=== PATIENT | male | born 1995 | race African-American/Black ===

== ENCOUNTER 2019-08-07 08:17 | Inpatient (IN) | payer OTHER ==
[2019-08-07] VITALS (8 sets, daily range): BP systolic 92–123; BP diastolic 50–70
[~2019-08-07] VITALS: Ht 175.3 cm; Wt 94.3 kg
[2019-08-07] MEDS ORDERED: PARO40TA3 PO (08:52)
[2019-08-07] MEDS ORDERED: PRAZ2CAP PO (08:52)
[2019-08-07] MEDS ORDERED: PRAZ1CAP PO (08:52)
[2019-08-07 09:14] LABS: BASO # 0.1 10^3/uL (0.0-0.2); BASO % 0.6 % (0.0-1.0); EOS # 0.2 10^3/uL (0.0-0.5); HEMATOCRIT 48.5 % (42.0-52.0); HEMOGLOBIN 15.9 g/dl (13.5-17.5); LYMPH # 1.4 10^3/uL (1.5-5.0); LYMPH % 16.8 % (24.0-44.0); MEAN CORPUSCULAR HEMOGLOBIN 29.8 pg (27.0-33.0); MEAN CORPUSCULAR HGB CONC 32.8 g/dl (32.0-36.5); MONO % 11.4 % (0.0-5.0); NEUTROPHILS # 5.7 10^3/uL (1.5-8.5); PLATELET COUNT, AUTOMATED 284 10^3/uL (150-450); RED BLOOD COUNT 5.33 10^6/uL (4.30-6.10); WHITE BLOOD COUNT 8.3 10^3/uL (4.0-10.0)
[2019-08-07 09:34] LABS: BLOOD UREA NITROGEN 17 MG/DL (7-18); CALCIUM LEVEL 9.1 MG/DL (8.5-10.1); CARBON DIOXIDE LEVEL 27 MEQ/L (21-32); CHLORIDE LEVEL 107 MEQ/L (98-107); CK-MB VALUE MASS 5.1 NG/ML (<3.6); CPK CREATINE PHOSPHOKINASE 1823 U/L (39-308); CREATININE FOR GFR 1.64 MG/DL (0.70-1.30); FREE THYROXINE INDEX 2.2 % (1.4-3.8); GLOMERULAR FILTRATION RATE > 60.0 (>60); GLUCOSE, FASTING 95 MG/DL (70-100); MAGNESIUM LEVEL 2.1 MG/DL (1.8-2.4); MB/CK RELATIVE INDEX 0.28 (< OR =4); NT-PRO BNP 277 PG/ML (<125); SODIUM LEVEL 140 MEQ/L (136-145); T UPTAKE 33 % (33-40); THYROXINE (T4) 6.7 UG/DL (4.5-12.0); TROPONIN I 0.18 NG/ML (< 0.10)
--- NOTE | 2019-08-07 09:41 | REP ---
Portable chest x-ray: Single view. History: Chest pain. Findings: EKG electrodes are seen. The lungs are well inflated and clear. Pleural angles are sharp. Heart size is normal. Pulmonary vasculature is not increased. No significant bony abnormality. Impression: No active disease. Electronically Signed by Kvng Damon MD 08/07/2019 09:34 A
[2019-08-07 10:24] LABS: APPEARANCE, URINE CLEAR (CLEAR); BACTERIA, URINE AUTO NEGATIVE (NEGATIVE); BILIRUBIN, URINE AUTO NEGATIVE (NEGATIVE); BLOOD, URINE BLOOD NEGATIVE (NEGATIVE); COLOR, URINE YELLOW (YELLOW); GLUCOSE, URINE (UA) AUTO NEGATIVE (NEGATIVE); KETONE, URINE AUTO NEGATIVE (NEGATIVE); LEUKOCYTE ESTERASE, URINE AUTO NEGATIVE (NEGATIVE); NITRITE, URINE AUTO NEGATIVE (NEGATIVE); PROTEIN, URINE AUTO NEGATIVE (NEGATIVE); RBC, URINE AUTO 0 /HPF (0-3); SPECIFIC GRAVITY URINE AUTO 1.021 (1.002-1.035); SQUAMOUS EPITHELIAL CELL UR AU 0 /HPF (0-6); UROBILINOGEN, URINE AUTO 0.2 mg/dL (0.0-2.0); WBC, URINE AUTO 0 /HPF (0-3)
[2019-08-07] MEDS ORDERED: NS 1,000 ML IV ONE (10:30)
[2019-08-07 10:51] LABS: AMPHETAMINES LEVEL URINE NEGATIVE (NEGATIVE); BARBITURATES URINE NEGATIVE (NEGATIVE); BENZODIAZEPINES URINE NEGATIVE (NEGATIVE); CANNABINOIDS URINE NEGATIVE (NEGATIVE); COCAINE METABOLITE URINE NEGATIVE (NEGATIVE); METHADONE URINE NEGATIVE (NEGATIVE); OPIATES URINE NEGATIVE (NEGATIVE); PHENCYCLIDINE URINE NEGATIVE (NEGATIVE)
--- NOTE | 2019-08-07 12:38 | HPEPDOC ---
General Date of Admission 08/07/2019 Date of Service: Aug 07, 2019 Attending Physician: GOLDEN LÓPEZ MD Chief Complaint The patient is a 24-year-old male admitted with a reason for visit of Sob Dizziness. 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 He denies any fanny chest pain, family history of sudden , knowledge of family with dysrhythmias, headaches, recent travel, recent illness, fever, chills, history of shortness of breath or edema. He thinks that his prior syncopal episodes may have had something to do with his nightly prazosin but noted that he has also had syncope without exertion during the day. In the ED, vitals were 129/58, HR 86, temp98.2, RR 17, saturating 99%. He was asymptomatic. Initial work up was notable for an EKG showing 1st degree heart block without ST changes, elevated trop to 0.18 (currently being trended), proBNP 277, TSH 2.55, free T4 2.2, negative tox screen, chest xray without acute pathology, CK 1823, Mag 2.1. He haad a bland UA, and he was given 1L NS. He is now being admitted to medicine for investigation of his syncope with preceding palpitations, tropininemia and RABIA. Home Medications Scheduled Paroxetine HCl (Paroxetine) 40 Mg Tablet, 40 MG PO DAILY, (Reported) Prazosin Hcl (Prazosin HCl) 2 Mg Capsule, 2 MG PO QHS, (Reported) Allergies Coded Allergies: No Known Allergies (Unverified , 08/07/19) Past Medical History Medical History Prior episodes of syncope PTSD Depression Surgical History None Family History Significant Family History: No pertinent family hx Sister has a heart murmurbut no knowledge of any other cardiac issues within his family. Social History * Smoker: former Smoker Alcohol: occationally Drugs: denies Recent Travel/Sick Contacts: Denies: Recent travel, Recent sick contacts lives with his . Retired . A-FIB/CHADSVASC A-FIB History Current/History of A-Fib/PAF?: No Current PO Anticoag Therapy: No Age/Risk Factor Scoring CHADSVASC: CHADSVASC Response (Comments) Value Age Risk Factor Age < 65 years old 0 Gender Risk Factor Male 0 Hx of CHF No 0 Hx of HTN No 0 Hx of Stroke/TIA/or VTE No 0 Hx of Diabetes No 0 Hx of Vascular Disease No 0 Total 0 Treatment Treatment ordered: NONE Reason Anticoagulant not given: Not indicated/[id number] Review of Systems Constitutional: Denies: Chills, Fever, Night Sweats Eyes: Denies: Pain, Vision change ENT: Denies: Head Aches, Ear Pain, Dysphagia Skin: Denies: Rash, Lesions, Breakdown Pulmonary: Denies: Dyspnea, Cough Cardiovascular: Reports: Palpitations, Lt Headedness; Denies: Chest Pain, Orthopnea, Paroxysmal Noc. Dyspnea, Edema Gastrointestinal: Denies: Nausea, Vomiting, Abdominal Pain, Diarrhea Genitourinary: Denies: Dysuria, Frequency, Incontinence, Retention Hematologic: Denies: Bruising, Bleeding Excessively Endocrine: Denies: Polydipsia, Polyphagia, Polyuria, Heat Intolerance, Cold Intolerance, Other Endocrine Sx Musculoskeletal: Denies: Neck Pain, Back Pain, Shoulder Pain, Arm Pain, Hand Pain, Leg Pain, Foot Pain, Joint Pain, Muscle Pain, Spasms, Other Symptoms Neurological: Denies: Weakness, Numbness, Incoordination, Change in speech, Confusion, Seizures, Other Symptoms Psych: Denies: Mood Normal, Anxiety, Depression, Memory Issues, Thoughts of Self Harm, Anger, Thoughts of Harming Other, Other Psych Physical Examination General Exam: Positive: Alert, No Acute Distress Eye Exam: Positive: PERRLA, Conjunctiva & lids normal, EOMI; Negative: Sclera icteric ENT Exam: Positive: Atraumatic, Mucous membr. moist/pink, Pharynx Normal Neck Exam: Positive: Supple; Negative: JVD, thyromegaly Chest Exam: Positive: Clear to auscultation, Normal air movement Heart Exam: Positive: Rate Normal, Regular Rhythm, Normal S1, Normal S2; Negative: Murmurs, Rubs Telemetry: Positive: No significant arrhythmia Abdomen Exam: Positive: Normal bowel sounds, Soft; Negative: Tenderness, Hepatospenomegaly Extremity Exam: Positive: Normal pulses; Negative: Clubbing, Cyanosis, Edema Skin Exam: Positive: Nl turgor and temperature; Negative: Breakdown, Lesion Neuro Exam: Positive: Normal Gait, Normal Speech, Cranial Nerves 3-12 NL, Reflexes 2+ Psych Exam: Positive: Mental status NL, Mood NL, Oriented x 3 Vital Signs Vital Signs Date Time Temp Pulse Resp B/P (MAP) Pulse Ox O2 Delivery O2 Flow Rate FiO2 08/07/19 11:30 64 16 119/59 (79) 100 Room Air 08/07/19 08:18 98.2 Laboratory Data Labs 24H Laboratory Tests 2 08/07/19 08:43: Immature Granulocyte % (Auto) 0.2, Neutrophils (%) (Auto) 69.0H, Lymphocytes (%) (Auto) 16.8L, Monocytes (%) (Auto) 11.4H, Eosinophils (%) (Auto) 2.0, Basophils (%) (Auto) 0.6, Neutrophils # (Auto) 5.7, Lymphocytes # (Auto) 1.4L, Monocytes # (Auto) 1.0H, Eosinophils # (Auto) 0.2, Basophils # (Auto) 0.1, Nucleated Red Blood Cells % (auto) 0.0, Anion Gap 6L, Glomerular Filtration Rate > 60.0, Calcium Level 9.1, Magnesium Level 2.1, Total Creatine Kinase 1823H, Creatine Kinase MB 5.1H, Creatine Kinase MB Relative Index 0.28, Troponin I 0.18H, NT -Pro-B-Type Natriuretic Peptide 277H, Thyroid Stimulating Hormone (TSH) 2.550, Free Thyroxine Index 2.2, Thyroxine (T4) 6.7, Triiodothyronine (T3) Uptake 33 08/07/19 10:02: Urine Color YELLOW, Urine Appearance CLEAR, Urine pH 7.0, Urine Specific [place] 1.021, Urine Protein NEGATIVE, Urine Glucose (Auto)(UA) NEGATIVE, Urine Ketones (Auto) NEGATIVE, Urine Blood NEGATIVE, Urine Nitrite NEGATIVE, Urine Bilirubin NEGATIVE, Urine Urobilinogen 0.2, Urine Leukocyte Esterase (Auto) NEGATIVE, Urine WBC (Auto) 0, Urine RBC (Auto) 0, Urine Hyaline Casts (Auto) 0, Urine Bacteria (Auto) NEGATIVE, Urine Squamous Epithelial Cells 0, Urine Sperm (Auto) , Urine Opiates Screen NEGATIVE, Urine Methadone Screen NEGATIVE, Urine Barbiturates Screen NEGATIVE, Urine Phencyclidine Screen NEGATIVE, Urine Amphetamines Screen NEGATIVE, Urine Benzodiazepines Screen NEGATIVE, Urine Cocaine Metabolite Screen NEGATIVE, Urine Cannabinoids Screen NEGATIVE CBC/BMP Laboratory Tests 08/07/19 08:43 Assessment/Plan 24 yo man with a history of 5 prior syncopal episodes, otherwise healthy who presents with palpitations, lightheadedness c/f cardiac syncope with noted elevate cardiac markers, CK and RABIA without knowledge of baseline renal function. Plan: Syncope: Most likely cardiac in etiology given palpitations with associated lightheadedness and noted tropopinemia and prolonged KS on EKG. -Telemetry -Electrolytes are within normal limits, will monitor daily K and Mag -TSH and free T4 within normal limits -elevated proBNP to 277 without evidence of fanny volume overload, will monitor -TTE -cardiology consult with Dr. [place] -CXR without acute pathology RABIA: possibly a combination of exercise induced rhabdo and dehydration, given elevated CK -s/p 1L NS -will give 1 more liter -AM BMP -urine lytes -if no improvement tomorrow AM will get renal US DVT ppx: heparin 5000u Q8H Dispo: medsurg with tele Diet: regular Plan / VTE VTE Prophylaxis Ordered?: Yes GOLDEN LÓPEZ MD Aug 07, 2019 12:38
[2019-08-07] MEDS: HEPARIN SOD (PORCINE) 5000 UNITS/ML VIAL SC SCH ×2 (14:30→21:56)
[2019-08-07] MEDS: PARoxetine 20 MG TAB PO SCH (14:30)
[2019-08-07] MEDS: NS 1,000 ML IV SCH (17:46)
--- NOTE | 2019-08-07 19:34 | ECHO ---
DATE OF PROCEDURE: 08/07/2019 REFERRING PHYSICIAN: Dr. Jarquin INDICATION: Syncope. Height 175 cm, weight 90 kg. DIMENSIONS: IVS: 1.2 LV: 4.9 LVPW: 1.2 LA: 2.8 Aorta: 2.6 Tissue Doppler velocities of mitral annulus were 15.8 septally and 15.0 laterally. The study is of good technical quality. The patient is in sinus rhythm with complete heart block and AV dissociation. Left ventricle is normal size and systolic function, estimated left ventricular ejection fraction (LVEF) 55-60%. Mild left ventricular hypertrophy (LVH) is noted. Right ventricle is also normal size and systolic function. Both atria are normal. All four cardiac valves were well seen and appear normal. No pericardial effusion is noted. Inferior vena cava is normal size. Aortic root, aortic arch and abdominal aorta all appear normal. Doppler interrogation reveals no aortic stenosis or insufficiency. There is trace mitral, tricuspid, and pulmonic insufficiency. Evaluation of diastolic function is altered due to underlying AV dissociation. But tissue Doppler velocities of mitral annulus are high and consequently I estimate normal diastolic function. CONCLUSIONS: 1. Study is of good technical quality. 2. Normal left ventricular (LV) size, mild left ventricular hypertrophy (LVH) and preserved LV systolic function. Probably normal diastolic function. 3. No hemodynamically significant valvular disease. 4. Normal central venous pressure and probably normal pulmonary artery pressure. COMMENT: Subacute bacterial endocarditis (SBE) prophylaxis is not recommended. MTDD
--- NOTE | 2019-08-07 20:15 | ECGEPIP ---
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 Order Number: [id number] Reading MD: Funmilayo Tran Measurements Intervals [place] Rate: 71 P: [place]: 0 QRS: 76 QRSD: 92 T: 57 QT: 375 QTc: 408 Interpretive Statements SINUS RHYTHM WITH FIRST DEGREE AV BLOCK ST ELEVATION, PROBABLY EARLY REPOLARIZATION Electronically Signed on 08-07-2019 20:15:00 EST by Funmilayo Tran
--- NOTE | 2019-08-07 22:22 | CR ---
DATE OF CONSULTATION: 08/07/2019 CARDIOLOGY CONSULTATION REFERRING PROVIDER: Dr. Kaya Jarquin REASON FOR THE CONSULT: Abnormal EKG, near syncope. HISTORY OF PRESENT ILLNESS: A 24-year-old -[place] male who just retired from the /[employer] about 2 years ago because of post-traumatic stress disorder (PTSD). Has been doing fairly well with episodes of near syncope on and off but rare, which he thought was related to the prazosin dropping his blood pressure. He also complains of palpitations described as a fast and a slow heartbeat. He is very active without any history of hypertension, hyperlipidemia, diabetes mellitus or known kidney disease, thyroid disorders. He does exercise very frequently at [employer] [place] [employer] and even yesterday he was exercising. During the night, he became lightheaded and usually he at night, but has been able to go to bed and feeling fine. But in the middle of the night, he woke up around a.m., tried to go to the bathroom and he felt dizzy and lightheaded and collapsed on the floor. He thinks he was out for about 30 seconds. Because he was not feeling better, he came to the emergency room (ER) early this morning around 8 o'clock for further evaluation. Upon arrival at the ER, his vital signs were stable with a blood pressure of 129/58, pulse 83, respirations 17, and his maximum temperature was 98.2 degrees Fahrenheit with an oxygen saturation of 99% on room air. I was informed about his symptoms by the ER provider, and I recommended to admit him for observation. He was admitted to medical-surgical on telemetry, and in the afternoon, he was found to have EKG changes on the telemetry consistent with complete heart block. His EKG on admission revealed normal sinus rhythm with a markedly prolonged TN interval/first-degree atrioventricular (AV) block. He was transferred to the progressive care unit (PCU) and cardiology consult was called. When I saw Mr. Alan Matamoros on the floor, he was supine in bed in no acute distress at rest and very pleasant. He denies any chest pain. He thinks on and off this evening he has been feeling intermittent fast and slow heartbeat. This is usually associated with lightheadedness. He has no pedal edema, orthopnea. He denies any chest pain. He has not been coughing. He denies any fever or chills. He has no focal manifestation. There is no active swelling or redness of the joints. There is no recent skin rash or tick bite. His labs on admission revealed an elevated serum creatinine of 1.64 with a total CPK of 1823 and a serum troponin of 0.18. Serum pro-BNP was 277. Urine toxicology was negative. He has a past medical history, as mentioned above, positive for PTSD, and prior episodes of near syncope, palpitations. There is no history of significant valvular heart disease, cardiomyopathy, sudden cardiac . And as mentioned above, there is no history of hypertension, diabetes mellitus, hyperlipidemia, kidney disease, thyroid disorders, lung disease. PAST SURGICAL HISTORY: Positive for wisdom tooth removal, otherwise unremarkable. FAMILY HISTORY: Positive for irregular heartbeats, and his sister was told that she has a heart murmur. SOCIAL HISTORY: The patient lives in town with his . He denies any smoking or ethyl alcohol (EtOH) abuse. He drinks very rarely. ALLERGIES: No known drug allergies. ADVANCED DIRECTIVES: Patient is FULL CODE. PHYSICAL EXAMINATION: The patient is alert and oriented, in no acute distress at rest, and his most recent vital signs revealed a blood pressure of 112/63 with a pulse of 76, respirations 17, and his maximum temperature is 98.4 degrees Fahrenheit with an oxygen saturation of 99-100% on room air. Examination of the head: Atraumatic. Neck: Did not reveal any carotid bruits. Lungs: The lungs were clear bilaterally on auscultation without any wheezing or crackles. Heart: The heart examination revealed irregular heart sounds, and I could not hear any gallops or murmur. The point of maximum impulse (PMI) is not displaced. There is no rub. Abdomen: Soft and bowel sounds are active. No bruits. Extremities: Reveal no pedal edema. Peripheral pulses, dorsalis pedis was +2 and equal as well as the radial pulses. Neurological Examination: Grossly was negative for focal deficits, patient was able to move all his extremities in bed. LABORATORY: CBC done today revealed a WBC of 8.3, hemoglobin 15.9, hematocrit 48.5, and platelets 284,000. BMP revealed a sodium of 140, potassium 4.0, chloride 107, CO2 27, BUN 17, creatinine 1.64, GFR more than 60, fasting glucose 95, and calcium 9.1. Serum magnesium is 2.1. Thyroid function test revealed a TSH of 2.55 and a free T4 of 2.2. Serum pro-BNP is 277. Serum troponin is 0.18 with a total CPK of 1823. CK-MB is 5.1 and relative index 0.28. Urinalysis essentially normal. Urine toxicology is negative. Chest x-ray revealed no acute disease process. Electrocardiogram done on admission in the emergency room (ER) revealed normal sinus rhythm at 71 beats per minute with a TN interval of about 400 milliseconds and early repolarization. No prior at this time for comparison. Telemetry was reviewed and revealed intermittent complete heart block but with an escape ventricular rate of 60-70 beats per minute. Junctional beats/rhythm also noted as well as first-degree AV block. IMPRESSION: 1. A 24-year-old male with a long history of near syncope, passed out late last evening, and at the time he was feeling dizzy and lightheaded, feeling his heart rate was going fast and slow. He came to the ER early this morning and was found to have an abnormal EKG that revealed a normal sinus rhythm with a markedly prolonged TN interval. His labs revealed some degree of kidney injury that may be related to dehydration and the supplement he is taking prior to his exercises. His serum troponin as well as serum CPK is slightly elevated and most likely related to muscle injury. His serum pro-BNP also is slightly elevated, but that may be related to the complete heart block with some degree of diastolic heart failure. Lyme titers are pending. Patient is very active, and he drives around and has been symptomatic. He initially thought it could be related to the prazosin and that may have a contributing factor of some of his episodes of lightheadedness and near syncope, but today, he has intermittent heart block and he is not on any medication that can be causing that. I am not sure about his supplement, and it was recommended to him to bring it to the hospital, so we can look at the different components in that supplement. I have told him that he most likely will need a permanent pacemaker because he is very active, he drives, and he has been feeling dizzy and lightheaded, and the EKG abnormalities can be the etiology. He would be willing to proceed. In the meantime, will be reviewing the echocardiogram for further evaluation. I will continue the IV fluids and monitor his cardiac enzymes. Dr. Franks will be seeing him in the morning, and Dr. Juarez is aware of the case and he will be willing to implant his permanent pacemaker any time over the weekend. He will be informed. It was a pleasure to participate in the care of Mr. Alan Matamoros for his underlying cardiac condition. We will continue to monitor him along with you while in the hospital and as an outpatient upon discharge as needed. The case was discussed briefly with the hospitalist covering tonight.
--- NOTE | 2019-08-07 22:26 | ECGEPIP ---
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 Poor R wave progression. Rhythm change compared with 08/07/2019 at 8:37 AM Electronically Signed on 08-07-2019 22:26:08 EST by Oleksandr Peguero
[2019-08-07] MEDS: PRAZOSIN 1 MG CAP PO SCH (22:45)
[2019-08-08] VITALS (7 sets, daily range): BP systolic 98–154; BP diastolic 50–76
[2019-08-08] MEDS: NS 1,000 ML IV SCH (01:30)
[2019-08-08] MEDS: HEPARIN SOD (PORCINE) 5000 UNITS/ML VIAL SC SCH ×3 (05:48→21:09)
[2019-08-08 06:12] LABS: HEMATOCRIT 45.7 % (42.0-52.0); HEMOGLOBIN 15.2 g/dl (13.5-17.5); MEAN CORPUSCULAR HEMOGLOBIN 30.2 pg (27.0-33.0); MEAN CORPUSCULAR HGB CONC 33.3 g/dl (32.0-36.5); MEAN CORPUSCULAR VOLUME 90.7 fl (80.0-96.0); PLATELET COUNT, AUTOMATED 285 10^3/uL (150-450); RED BLOOD COUNT 5.04 10^6/uL (4.30-6.10); WHITE BLOOD COUNT 8.9 10^3/uL (4.0-10.0)
[2019-08-08 06:33] LABS: BLOOD UREA NITROGEN 13 MG/DL (7-18); CALCIUM LEVEL 8.4 MG/DL (8.5-10.1); CARBON DIOXIDE LEVEL 26 MEQ/L (21-32); CHLORIDE LEVEL 106 MEQ/L (98-107); CREATININE FOR GFR 1.48 MG/DL (0.70-1.30); GLOMERULAR FILTRATION RATE > 60.0 (>60); GLUCOSE, FASTING 94 MG/DL (70-100); POTASSIUM SERUM 4.3 MEQ/L (3.5-5.1); SODIUM LEVEL 140 MEQ/L (136-145)
[2019-08-08] MEDS: PARoxetine 20 MG TAB PO SCH (09:19)
--- NOTE | 2019-08-08 14:31 | IPN ---
DATE: 08/08/2019 Mr. Matamoros has been feeling well. Since he has been in the hospital, he has not had any significant events. Telemetry monitoring continues to reveal variable degree of atrioventricular (AV) block. Most of the time he is in first-degree AV block with very long AV interval, but intermittently has complete AV dissociation, but the ventricular rate never drops overly slow. I have not seen any bradycardia below 40. Vital signs: Blood pressure of 90/70, but usually in low 100s systolic. Heart rate from 50s to 80s. He is afebrile. Saturation 98% on room air. Weight is 92.8 kg. He is alert and oriented and appropriate, very pleasant. Jugular venous pulse (JVP) is not up. Heart is regular. I do not appreciate any gallop, rub or murmur. Lungs are clear. No peripheral edema. Neurologically intact. LABORATORIES: CBC and basic metabolic panel are normal but for creatinine 1.5. There was no followup troponin drawn. Urinalysis is negative for protein or blood, and his toxicology screen was completely negative. ASSESSMENT AND PLAN: Mr. Matamoros is a very pleasant 24-year-old man, who presents with syncopal events at home. It occurred at night after a fairly intense workout in the afternoon hours. Based on the description there seems to be suggestion of vasovagal etiology even though his EKG continues to reveal variable degree of AV block with narrow QRS complex. At this point, in my opinion, he most likely will end up getting a pacemaker. But we do not have any obvious explanation for the AV block other than very high vagal tone. I had a discussion with Dr. Juarez and he is somewhat reluctant to proceed with pacemaker placement because so far we have not demonstrated any severe bradycardia. It is certainly a very reasonable point. Will let the patient ambulate in progressive care unit (PCU) today and will let him eat. Provided he does have higher degree of AV bone block and/or symptomatic bradycardia, then obviously pacemaker is clearly warranted. On the other hand if no evidence occur, he probably can get a Reveal monitor rather than a pacemaker itself. As far as the etiology is concerned this is somewhat mysterious. His chest x- ray is normal and there are no other signs or symptoms to suggest sarcoidosis. There are also no signs or symptoms to suggest a rheumatologic condition, but I am going to send an JOSIE titer and sedimentation rate and will repeat his troponin tomorrow morning. The other conditions are Lyme disease and that the titer was sent even though it will not be available for several days, and finally, consideration should be also given to rare infections. Nevertheless, in his history I do not see any signs to suggest so. EDLAD
--- NOTE | 2019-08-08 14:39 | IPNPDOC ---
Text Note Date of Service The patient was seen on 08/08/19. NOTE General Exam: Alert, No Acute Distress Eye Exam: PERRLA, Conjunctiva & lids normal, EOMI, anicteric ENT Exam: Atraumatic, Mucous membr. moist/pink, Pharynx Normal Neck Exam: Supple, no JVD or thyromegaly Chest Exam: Clear to auscultation, Normal air movement Heart Exam: Rate Normal, Normal S1, Normal S2, no murmurs Telemetry: prolonged DE and then episodes of 3rd degree heart block Abdomen Exam: Normoactive bowel sounds, soft, NTND Extremity Exam: No LE edema, WWP, 2+ DP pulses Skin Exam: No lesions or rashes Neuro Exam: Normal Gait, Normal Speech, Cranial Nerves 3-12 NL, Reflexes 2+ Psych Exam: Mental status NL, Mood NL, Oriented x 3 Labs: Reviewed: WBC 8.9 Hgb 15.2 Hct 45.7 Platelets 285 Na 140 K 4.3 Cr downtrended to 1.48 Mag 2 08/07/2019: TTE The study is of good technical quality. The patient is in sinus rhythm with complete heart block and AV dissociation. Left ventricle is normal size and systolic function, estimated left ventricular ejection fraction (LVEF) 55-60%. Mild left ventricular hypertrophy (LVH) is noted. Right ventricle is also normal size and systolic function. Both atria are normal. All four cardiac valves were well seen and appear normal. No pericardial effusion is noted. Inferior vena cava is normal size. Aortic root, aortic arch and abdominal aorta all appear normal. Doppler interrogation reveals no aortic stenosis or insufficiency. There is trace mitral, tricuspid, and pulmonic insufficiency. Evaluation of diastolic function is altered due to underlying AV dissociation. But tissue Doppler velocities of mitral annulus are high and consequently I estimate normal diastolic function. CONCLUSIONS: 1. Study is of good technical quality. 2. Normal left ventricular (LV) size, mild left ventricular hypertrophy (LVH) and preserved LV systolic function. Probably normal diastolic function. 3. No hemodynamically significant valvular disease. 4. Normal central venous pressure and probably normal pulmonary artery pressure. Assessment/Plan 24 yo man with a history of 5 prior syncopal episodes stretching over >1y, otherwise healthy who presents with palpitations, lightheadedness c/f cardiac syncope with noted elevate cardiac markers, CK and RABIA without knowledge of baseline renal function, with report of health supplements that are still to be reviewed, now found to be in 3rd degree heart block with a normal echo with no noted structural pathology, pending a pacemaker with Dr. Juarez today. Plan: Syncope: Presented with a history of multiple episodic syncope episodes wtih some palpitations and associated lightheadedness and noted tropopinemia and prolonged DE on EKG, and now 3rd degree HB on telemetry. -continue telemetry -Electrolytes are within normal limits, will monitor daily K and Mag -TSH and free T4 within normal limits -elevated proBNP to 277 without evidence of fanny volume overload, will monitor -TTE wnl -cardiology consult with Dr. Washington --> has pads on and transferred to PCU in the event that he needs transthoracic pacing emergently -f/u lyme titers -Pending pacemaker with Dr. Juarez today, patient is NPO -CXR without acute pathology RABIA: possibly a combination of exercise induced rhabdo, dehydration and supplements -s/p 1L NS, got 2nd liter overnight -AM BMP with improved Cr -f/u supplements history, his is to bring in his supplements he has been taking for review DVT ppx: heparin 5000u Q8H Dispo: PCU with cardiology following, pending lyme titers and likely pacemaker placement this weekend Diet: regular Plan / VTE VTE Prophylaxis Ordered?: Yes VS,Gloria, I+O VS, Gloria, I+O Laboratory Tests 08/07/19 08:43 08/08/19 05:43 Vital Signs Date Time Temp Pulse Resp B/P (MAP) Pulse Ox O2 Delivery O2 Flow Rate FiO2 08/08/19 04:00 98.4 65 16 108/76 (87) 99 Room Air I&O- Last 24 Hours up to 6 AM 08/08/19 06:00 Intake Total 2235 ml Output Total 700 ml Balance 1535 ml GOLDEN LÓPEZ MD Aug 08, 2019 07:27
[2019-08-08] MEDS: PRAZOSIN 1 MG CAP PO SCH (21:00)
[2019-08-09] VITALS (7 sets, daily range): BP systolic 108–137; BP diastolic 58–82
[2019-08-09 05:54] LABS: HEMATOCRIT 47.7 % (42.0-52.0); HEMOGLOBIN 15.1 g/dl (13.5-17.5); MEAN CORPUSCULAR HEMOGLOBIN 29.3 pg (27.0-33.0); MEAN CORPUSCULAR HGB CONC 31.7 g/dl (32.0-36.5); MEAN CORPUSCULAR VOLUME 92.6 fl (80.0-96.0); PLATELET COUNT, AUTOMATED 306 10^3/uL (150-450); RED BLOOD COUNT 5.15 10^6/uL (4.30-6.10); WHITE BLOOD COUNT 8.7 10^3/uL (4.0-10.0)
[2019-08-09 06:20] LABS: ERYTHROCYTE SEDIMENTATION RATE 12 mm/hr (0-15)
[2019-08-09 06:32] LABS: BLOOD UREA NITROGEN 17 MG/DL (7-18); CALCIUM LEVEL 8.7 MG/DL (8.5-10.1); CARBON DIOXIDE LEVEL 30 MEQ/L (21-32); CHLORIDE LEVEL 106 MEQ/L (98-107); GLOMERULAR FILTRATION RATE > 60.0 (>60); GLUCOSE, FASTING 88 MG/DL (70-100); POTASSIUM SERUM 4.5 MEQ/L (3.5-5.1); SODIUM LEVEL 140 MEQ/L (136-145)
[2019-08-09] MEDS: HEPARIN SOD (PORCINE) 5000 UNITS/ML VIAL SC SCH ×3 (06:50→22:11)
[2019-08-09] MEDS: PARoxetine 20 MG TAB PO SCH (08:37)
--- NOTE | 2019-08-09 11:19 | IPNPDOC ---
Text Note Date of Service The patient was seen on 08/09/19. NOTE Subjective: -Had episode of SOB yesterday walking around -Overnight was yazmin was sleeping to 40s -continues on tele to go from 1st degree HB to dissociation -This morning reporting worsening dyspnea with any exertion Interim events: -Dr. Juarez decided to wait on PPM placement and monitor for symptomatic bradycardia-Dr. Interiano NOTE General Exam: Alert, No Acute Distress Eye Exam: PERRLA, Conjunctiva & lids normal, EOMI, anicteric ENT Exam: Atraumatic, Mucous membr. moist/pink, Pharynx Normal Neck Exam: Supple, no JVD or thyromegaly Chest Exam: Clear to auscultation, Normal air movement Heart Exam: Rate Normal, Normal S1, Normal S2, no murmurs Telemetry: prolonged NJ and then episodes of 3rd degree heart block Abdomen Exam: Normoactive bowel sounds, soft, NTND Extremity Exam: No LE edema, WWP, 2+ DP pulses Skin Exam: No lesions or rashes Neuro Exam: Normal Gait, Normal Speech, Cranial Nerves 3-12 NL, Reflexes 2+ Psych Exam: Mental status NL, Mood NL, Oriented x 3 Labs: Reviewed: WBC 8.7 Hgb 15.1 Hct 47.7 Platelets 306 Na 140 K 4.5 Cr uptrending to 1.7 Mag pending ESR 12 Trop this AM was uptrending, now 0.6 08/07/2019: TTE The study is of good technical quality. The patient is in sinus rhythm with complete heart block and AV dissociation. Left ventricle is normal size and systolic function, estimated left ventricular ejection fraction (LVEF) 55-60%. Mild left ventricular hypertrophy (LVH) is noted. Right ventricle is also normal size and systolic function. Both atria are normal. All four cardiac valves were well seen and appear normal. No pericardial effusion is noted. Inferior vena cava is normal size. Aortic root, aortic arch and abdominal aorta all appear normal. Doppler interrogation reveals no aortic stenosis or insufficiency. There is trace mitral, tricuspid, and pulmonic insufficiency. Evaluation of diastolic function is altered due to underlying AV dissociation. But tissue Doppler velocities of mitral annulus are high and consequently I estimate normal diastolic function. CONCLUSIONS: 1. Study is of good technical quality. 2. Normal left ventricular (LV) size, mild left ventricular hypertrophy (LVH) and preserved LV systolic function. Probably normal diastolic function. 3. No hemodynamically significant valvular disease. 4. Normal central venous pressure and probably normal pulmonary artery pressure. Assessment/Plan 24 yo man with a history of 5 prior syncopal episodes stretching over >1y, otherwise healthy who presents with palpitations, lightheadedness c/f cardiac syncope with noted elevate cardiac markers, CK and RABIA without knowledge of baseline renal function, with report of health supplements that are still to be reviewed, now found to be in 3rd degree heart block with a normal echo with no noted structural pathology and normal ESR with pending lyme studies under evaluation for possible pacemaker. Plan: Syncope: Presented with a history of multiple episodic syncope episodes wtih some palpitations and associated lightheadedness and noted troponinemia and prolonged NJ on EKG, and now 3rd degree HB on telemetry. -continue telemetry -Electrolytes are within normal limits, will monitor daily K and Mag -TSH and free T4 within normal limits -elevated proBNP to 277 without evidence of fanny volume overload, will monitor volume status -TTE wnl -cardiology consult --> has pads within PCU in the event that he needs transthoracic pacing emergently. Has elevated troponin, euvolemic on exam with some KLINE with unclear source of myocardial injury, pending JOSIE, ESR was normal -f/u lyme titers -Ongoing evaluation for need of pacemaker with Dr. Juarez recommending waiting and observing symptomatic bradycardia before proceeding with PPM placement and exploring other etiologies -CXR without acute pathology -ESR was normal -This AM trop uptrended, Cardiology is consulted and Dr. Interiano is following RABIA: possibly a combination of exercise induced rhabdo, dehydration and supplements. Cr was initially improving after some fluids but is now uptrending -s/p 2L NS -send urine lytes -stopped all supplements that including Creatine, vitamins, whey protein and free amino acids. DVT ppx: heparin 5000u Q8H Dispo: PCU with cardiology following, pending lyme titers, JOSIE, close monitoring with discussions about the idea of PPM Diet: regular VS,Fishbone, I+O VS, Fishbone, I+O Laboratory Tests 08/09/19 05:19 Vital Signs Date Time Temp Pulse Resp B/P (MAP) Pulse Ox O2 Delivery O2 Flow Rate FiO2 08/09/19 04:50 48 108/72 (84) 08/09/19 04:00 98.3 16 100 Room Air I&O- Last 24 Hours up to 6 AM 08/09/19 06:00 Intake Total 660 ml Output Total 1000 ml Balance -340 ml GOLDEN LÓPEZ MD Aug 09, 2019 08:05
--- NOTE | 2019-08-09 11:20 | IPN ---
DATE OF VISIT: 08/09/2019 Mr. Matamoros is feeling about the same. He is asymptomatic at rest, but with standing up and with ambulation he often gets lightheaded. Telemetry monitoring also remains unchanged. He is most of the time in first-degree AV block, but intermittently has AV dissociation, but narrow QRS complex and no long pauses. With ambulation, it looks like his ventricular rate appropriately accelerated. Blood pressure 136/63. Heart rate from high 40s to 70s. Saturation 97% on room air. His fluid balance was approximately equal yesterday. Weight is recorded 95.8 kg. He is alert and oriented and appropriate. His jugular venous pulse (JVP) is not high. Lungs are clear. Heart exam reveals regular rhythm. No gallop. Extremities are free of edema. LABORATORIES: CBC is normal. Basic metabolic panel with sodium 140, potassium 4.5, BUN 17, creatinine 1.7, glucose 88 and Troponin I is 0.6. His JOSIE is pending and Lyme titer is also pending. His is present and apparently he went through his medical records, but there was no ECG that he could find. ASSESSMENT/PLAN: Mr. Matamoros is a very complicated and interesting case. He is a young man, very physically active who presented after he suffered several syncopal events at home that sound neurocardiogenic by description, but simultaneously is found to have first-degree AV block alternating with AV dissociation, but narrow QRS complex and no extreme bradycardia. Initially, I felt that he will need a pacemaker, but now I am less convinced. It is not clear to me what is causing the underlying abnormality and also not clear to me why his troponin is actually going up. At this point, mostly because of raising troponin, I think it is appropriate to continue observation. I will keep him in the hospital at least one more day. I asked him to keep ambulating. At this at this point, it is my feeling that we will most likely avoid pacemaker placement and will proceed with Reveal monitor possibly tomorrow.
[2019-08-09] MEDS: PRAZOSIN 1 MG CAP PO SCH (22:11)
[2019-08-10] VITALS (10 sets, daily range): BP systolic 116–128; BP diastolic 56–78
--- NOTE | 2019-08-10 01:18 | ECGEPIP ---
[facility] Test Date: 2019-08-09 Pat Name: MILLY GÓMEZ Department: Room: [place] [address] Gender: Male Returns Clerk: LINH : 1995 Requested By: Hodan Franks Order Number: [id number] Reading MD: Oleksandr Cerda Measurements Intervals [place] Rate: 61 P: TX: 0 QRS: 81 QRSD: 102 T: 46 QT: 393 QTc: 397 Interpretive Statements Sinus rhythm with very prolonged first degree av block Delayed anterior R wave progression Previous tracing done 08-07-19 showed av dissociation Electronically Signed on 08-10-2019 1:18:31 EST by Oleksandr Cerda
[2019-08-10 05:32] LABS: HEMOGLOBIN 14.4 g/dl (13.5-17.5); MEAN CORPUSCULAR HEMOGLOBIN 30.3 pg (27.0-33.0); MEAN CORPUSCULAR HGB CONC 33.5 g/dl (32.0-36.5); MEAN CORPUSCULAR VOLUME 90.3 fl (80.0-96.0); PLATELET COUNT, AUTOMATED 298 10^3/uL (150-450); RED BLOOD COUNT 4.76 10^6/uL (4.30-6.10)
[2019-08-10 05:53] LABS: BLOOD UREA NITROGEN 16 MG/DL (7-18); CALCIUM LEVEL 8.6 MG/DL (8.5-10.1); CARBON DIOXIDE LEVEL 29 MEQ/L (21-32); CHLORIDE LEVEL 106 MEQ/L (98-107); GLOMERULAR FILTRATION RATE > 60.0 (>60); GLUCOSE, FASTING 93 MG/DL (70-100); MAGNESIUM LEVEL 1.8 MG/DL (1.8-2.4); POTASSIUM SERUM 4.2 MEQ/L (3.5-5.1); SODIUM LEVEL 139 MEQ/L (136-145); TROPONIN I 0.26 NG/ML (< 0.10)
[2019-08-10] MEDS: HEPARIN SOD (PORCINE) 5000 UNITS/ML VIAL SC SCH ×3 (06:38→14:27)
[2019-08-10] MEDS ORDERED: ceFAZolin SOD 2 GM in IV 1 EA IV ONE (08:00)
[2019-08-10] MEDS: PARoxetine 20 MG TAB PO SCH (08:32)
[2019-08-10] MEDS ORDERED: LIDOCAINE 1% SDV INJ 30 ML VIAL As Ordered ONE (09:21)
[2019-08-10] MEDS ORDERED: MIDAZOLAM INJ 2 MG/2 ML VIAL (J2250) As Ordered ONE (09:22)
[2019-08-10] MEDS ORDERED: ONDANSETRON 4MG/2ML VIAL (J2405) As Ordered ONE (09:22)
[2019-08-10] MEDS ORDERED: fentaNYL 100 MCG/2 ML INJECTION (J3010) As Ordered ONE (09:22)
[2019-08-10] MEDS ORDERED: LIDOCAINE 2% INJ 100 MG/5 ML SDV (FOR ANES.) As Ordered ONE (09:26)
[2019-08-10] MEDS ORDERED: ceFAZolin 2 GM/D5W 50 ML IV BAG (J0690 PER 500MG) As Ordered ONE (09:45)
[2019-08-10] MEDS ORDERED: ACETAMINOPHEN 1000MG 100ML IV BTL (OFIRMEV) (J0131 PER 10MG) As Ordered ONE (09:52)
[2019-08-10] MEDS ORDERED: ONDANSETRON 4MG/2ML VIAL (J2405) IV PRN (10:45)
[2019-08-10] MEDS ORDERED: LR 1,000 ML IV SCH (10:45)
[2019-08-10] MEDS ORDERED: METOCLOPRAMIDE INJ 10MG/2ML VIAL (J2765) IV PRN (10:45)
[2019-08-10] MEDS ORDERED: fentaNYL 100 MCG/2 ML INJECTION (J3010) IV PRN (10:45)
--- NOTE | 2019-08-10 10:47 | RO ---
DATE OF PROCEDURE: 08/10/2019 PROCEDURE: Implantation of loop recorder. IMPLANTING COMMERCIAL CREDIT ANALYST: Dr. Alan Juarez ANESTHESIOLOGIST: Dr. Perez PREOPERATIVE DIAGNOSES: 1. Recurrent syncope. 2. AV block (unspecified). POSTOPERATIVE DIAGNOSES: 1. Recurrent syncope. 2. AV block (unspecified). TYPE OF ANESTHESIA: Monitored local anesthesia. BRIEF CLINICAL SUMMARY: This 24-year-old athletic -[place] male presented to our emergency room August 07, 2019 having suffered with shortness of breath, irregular palpitations and near syncope/syncope. Initial vital signs: Pulse 83 bpm, blood pressure 129/58, respiratory rate 17, O2 saturation 99% on room air. He was afebrile. His initial ER EKG showed sinus rhythm at 71 bpm with marked first-degree AV block with early repolarization, tracing non-appearance other than a first-degree AV block, not outside normal limits. Portable upright chest x-ray showed normal heart size and pulmonary vasculature with clear lung barajas. Echocardiogram on admission showed normal left ventricular size with borderline left ventricle hypertrophy with normal wall motion, normal left atrial size and Doppler assessment of LV diastolic function. Normal right heart chamber sizes and estimated pulmonary arterial pressure. Valvular structures and function were normal. Normal IVC size and collapse. No pericardial effusion. Admitted to a telemetry unit, intermittent second-degree AV block with Mobitz type 1 and occasional AV dissociation was observed, but pulse rates were never lower than 48 beats per minute and the patient did not complain of any dizziness or lightheadedness in hospital. Upon ambulation, his heart rate response was normal. EKG this morning shows sinus bradycardia with only subtle first-degree AV block. The patient is on prazosin and paroxetine at home for depression and post-traumatic stress disorder. Blood pressures in hospital were all within normal limits. In light of the uncertainty of the absolute diagnosis of his near syncope and syncope at home, and his young age, and monitor findings in the hospital of failing to demonstrate any significant bradyarrhythmia despite 72 hours of monitoring, after discussion with Dr. Franks we elected to proceed with an implantable loop recorder. DESCRIPTION OF PROCEDURE: In the fasting state, following informed consent and Ancef 2 grams IV premedication, the patient was taken to the operating theater. Numerous skin electrodes were applied to facilitate continuous electrocardiographic monitoring. The left precordial region was prepped and draped in the usual fashion. The skin over the third intercostal space 2 cm removed from the left sternal border was infiltrated with 1% Xylocaine and a 1 cm incision was made. Using the [employer]Stream[employer] introducing tool his implantable monitor was positioned on a 45 degrees angle from the incision site (iStreamPlanettronic LINQ model LNQ11, serial number [id number]). The remote signal indicated an excellent atrial and ventricular complex size. The skin was closed with two separate karen and a dry dressing was applied. The patient was returned to the recovery room in good condition. Within moments, the patient's awareness was restored. Heart rate 59 bpm, blood pressure 136/64, O2 saturation 95% on room air. Estimated blood loss less than 1 mL. No apparent complications. His device is set for VT cycle length 298 milliseconds (207 bpm) and 16 beats and bradycardia for cycle length 2000 milliseconds (30 bpm) four beats, asystole for 3 seconds. He will be going back to the floor and can be discharged later today from our standpoint. We will plan on seeing him for his wound check and staple removal in approximately 7-10 days time. We have asked him not to change his OpSite dressing and have only sponge baths until his karen are removed. Subsequent to his wound check, he will be monitored in the future by Dr. Zachary Washington, [place], [place].
--- NOTE | 2019-08-10 12:22 | IPNPDOC ---
Text Note Date of Service The patient was seen on 08/10/19. NOTE Subjective: -continued to have KLINE, otherwise no chest pain, palpitations NOTE General Exam: Alert, No Acute Distress Eye Exam: PERRLA, Conjunctiva & lids normal, EOMI, anicteric ENT Exam: Atraumatic, Mucous membr. moist/pink, Pharynx Normal Neck Exam: Supple, no JVD or thyromegaly Chest Exam: Clear to auscultation, Normal air movement Heart Exam: Rate Normal, Normal S1, Normal S2, no murmurs Telemetry: prolonged NH and then episodes of 3rd degree heart block Abdomen Exam: Normoactive bowel sounds, soft, NTND Extremity Exam: No LE edema, WWP, 2+ DP pulses Skin Exam: No lesions or rashes Neuro Exam: Normal Gait, Normal Speech, Cranial Nerves 3-12 NL, Reflexes 2+ Psych Exam: Mental status NL, Mood NL, Oriented x 3 Labs: Reviewed: WBC 8 Hgb 14.4 Hct 43 Platelets 298 K 4.2 Cr downtrended to 1.6 Mag 1.8 (will replete to >2) Trop this AM downtrended to 0.26 08/07/2019: TTE The study is of good technical quality. The patient is in sinus rhythm with complete heart block and AV dissociation. Left ventricle is normal size and systolic function, estimated left ventricular ejection fraction (LVEF) 55-60%. Mild left ventricular hypertrophy (LVH) is noted. Right ventricle is also normal size and systolic function. Both atria are normal. All four cardiac valves were well seen and appear normal. No pericardial effusion is noted. Inferior vena cava is normal size. Aortic root, aortic arch and abdominal aorta all appear normal. Doppler interrogation reveals no aortic stenosis or insufficiency. There is trace mitral, tricuspid, and pulmonic insufficiency. Evaluation of diastolic function is altered due to underlying AV dissociation. But tissue Doppler velocities of mitral annulus are high and consequently I estimate normal diastolic function. CONCLUSIONS: 1. Study is of good technical quality. 2. Normal left ventricular (LV) size, mild left ventricular hypertrophy (LVH) and preserved LV systolic function. Probably normal diastolic function. 3. No hemodynamically significant valvular disease. 4. Normal central venous pressure and probably normal pulmonary artery pressure. Assessment/Plan 24 yo man with a history of 5 prior syncopal episodes stretching over >1y, otherwise healthy who presents with palpitations, lightheadedness c/f cardiac syncope with noted elevate cardiac markers, CK and RABIA without knowledge of baseline renal function, with report of health supplements that are still to be reviewed, now found to have episodes of 3rd degree heart block with a normal echo with no noted structural pathology and normal ESR with pending lyme studies now getting a loop recorder this morning per Dr. Juarez. Plan: Syncope: Presented with a history of multiple episodic syncope episodes wtih some palpitations and associated lightheadedness and noted troponinemia and prolonged NH on EKG, and now episodes of 3rd degree HB on telemetry. -continue telemetry -Electrolytes are within normal limits, will monitor daily K and Mag -TSH and free T4 within normal limits -elevated proBNP to 277 without evidence of fanny volume overload, will monitor volume status -TTE wnl -cardiology consult --> has pads within PCU in the event that he needs transthoracic pacing emergently. Has elevated troponin, euvolemic on exam with some KLINE with unclear source of myocardial injury, pending JOSIE, ESR was normal -f/u lyme titers -Ongoing evaluation and getting a loop recorder this AM with Dr. Juarez -CXR without acute pathology -ESR was normal -This AM trop now downtrending, Dr. Interiano is officially following RABIA: possibly a combination of exercise induced rhabdo, dehydration and supplements. Cr was initially improving after some fluids but is now uptrending -s/p 2L NS -FeNa was suggestive of a prerenal etiology, now downtrending, will monitor -stopped all supplements that including Creatine, vitamins, whey protein and free amino acids. DVT ppx: heparin 5000u Q8H Dispo: PCU with cardiology following, pending lyme titers, JOSIE, close monitoring and getting a loop recorder this morning Diet: regular VS,Fishbone, I+O VS, Fishbone, I+O Laboratory Tests 08/10/19 05:06 Vital Signs Date Time Temp Pulse Resp B/P (MAP) Pulse Ox O2 Delivery O2 Flow Rate FiO2 08/10/19 04:00 98.9 72 16 128/59 (82) 98 Room Air I&O- Last 24 Hours up to 6 AM 08/10/19 06:00 Intake Total 0 ml Output Total 1000 ml Balance -1000 ml GOLDEN LÓPEZ MD Aug 10, 2019 08:49
--- NOTE | 2019-08-10 14:58 | DS.PDOC ---
Discharge Summary General Date of Admission Aug 07, 2019 Date of Discharge 08/10/2019 Attending Physician: GOLDEN LÓPEZ MD Specialist/Consultants Involve: Alan Juarez Specialist/Consultants Involve Dr. Franks Discharge Summary PROCEDURES PERFORMED DURING STAY: None ADMITTING DIAGNOSES: 1. Syncope DISCHARGE DIAGNOSES: 1. Syncope - presumed cardiac with noted variable degrees of heart block 2. RABIA 3. PTSD with recurrent nightmares 4. Depression COMPLICATIONS/CHIEF COMPLAINT: Rabia (Acute Kidney Injury). 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 He denied any fanny chest pain, family history of sudden , knowledge of family with dysrhythmias, headaches, recent travel, recent illness, fever, chills, history of shortness of breath or edema. He initially thought that his prior syncopal episodes may have had something to do with his nightly prazosin but noted that he has also had syncope without exertion during the day. HOSPITAL COURSE: In the ED, vitals were 129/58, HR 86, temp98.2, RR 17, saturating 99%. He was asymptomatic. Initial work up was notable for an EKG showing 1st degree heart block without ST changes, elevated trop to 0.18, proBNP 277, TSH 2.55, free T4 2.2, negative tox screen, chest xray without acute pathology, CK 1823, Mag 2.1. He had a bland UA, and he was given 1L NS and was admitted to medicine for investigation of his syncope as well as tropininemia and RABIA. While inpatient, cardiology was consulted initially Dr. Washington, and when he was noted on telemetry to have variable degree heartblock, mostly 1st degree heart block as well as episodes of complete A V dissociation c/w 3rd degree heartblock, Dr. Washington recommended reaching out to Dr. Peguero in the event that he would need a PPM. Dr. Peguero's counterpart Dr. Juarez who was covering the weekend evaluated his strips and recommended a loop recorder instead to investigate his circuitry and possible etiologies in this young man, who by the time he evaluated him had a TTE without pathology and had no further syncopal episodes and was grossly nonfocal on examination. Dr. Franks (Dr. Washington's counterpart) who was the official recreation activities coordinator on record for the weekend agreed with the idea of the loop recorder before decision on PPM placement could be made. We also investigated Lyme titers that are still pending. Of note, Mr. Matamoros also had an elevated Cr to 1.6s on presentation c/f an RABIA, but it was later shared that he takes a massive amount of supplements including creatine and various amino acids. We discussed their possible detrimental effects and he agreed to stop using them at this time. His course was c/b a transient uptrend in his troponin for unclear reasons without symptoms of chest pain, and some episodic dyspnea on exertion. He is now being discharged home to continue monitoring his symptoms, while on the loop recorder and follow up with Dr. Peguero outpatient. He was otherwise given fluids and not started on any new medications. DISCHARGE MEDICATIONS: Please see below. ALLERGIES: Please see below. PHYSICAL EXAMINATION ON DISCHARGE: VITAL SIGNS: Please see below. General Exam: Alert, No Acute Distress Eye Exam: PERRLA, Conjunctiva & lids normal, EOMI, anicteric ENT Exam: Atraumatic, Mucous membr. moist/pink, Pharynx Normal Neck Exam: Supple, no JVD or thyromegaly Chest Exam: Clear to auscultation, Normal air movement Heart Exam: Rate Normal, Normal S1, Normal S2, no murmurs Telemetry: prolonged AL and then episodes of 3rd degree heart block Abdomen Exam: Normoactive bowel sounds, soft, NTND Extremity Exam: No LE edema, WWP, 2+ DP pulses Skin Exam: No lesions or rashes Neuro Exam: Normal Gait, Normal Speech, Cranial Nerves 3-12 NL, Reflexes 2+ Psych Exam: Mental status NL, Mood NL, Oriented x 3 LABORATORY DATA: Please see below. IMAGIN08/07/2019: TTE The study is of good technical quality. The patient is in sinus rhythm with complete heart block and AV dissociation. Left ventricle is normal size and systolic function, estimated left ventricular ejection fraction (LVEF) 55-60%. Mild left ventricular hypertrophy (LVH) is noted. Right ventricle is also normal size and systolic function. Both atria are normal. All four cardiac valves were well seen and appear normal. No pericardial effusion is noted. Inferior vena cava is normal size. Aortic root, aortic arch and abdominal aorta all appear normal. Doppler interrogation reveals no aortic stenosis or insufficiency. There is trace mitral, tricuspid, and pulmonic insufficiency. Evaluation of diastolic function is altered due to underlying AV dissociation. But tissue Doppler velocities of mitral annulus are high and consequently I estimate normal diastolic function. CONCLUSIONS: 1. Study is of good technical quality. 2. Normal left ventricular (LV) size, mild left ventricular hypertrophy (LVH) and preserved LV systolic function. Probably normal diastolic function. 3. No hemodynamically significant valvular disease. 4. Normal central venous pressure and probably normal pulmonary artery pressure. ACTIVITY: As tolerated DIET: Regular DISCHARGE PLAN: Home with loop recorder, to follow up with cardiology outpatient DISPOSITION: Home DISCHARGE INSTRUCTIONS: 1. Home with loop recorder, to follow up with cardiology outpatient. You seem to still have dyspnea with exertion, so you should be gradual in your return to your daily activities ITEMS TO FOLLOWUP ON ON OUTPATIENT: 1. Syncope with noted variable degree of heart block. DISCHARGE CONDITION: Stable TIME SPENT ON DISCHARGE: 43 minutes. Vital Signs/I&Os Vital Signs Date Time Temp Pulse Resp B/P (MAP) Pulse Ox O2 Delivery O2 Flow Rate FiO2 08/10/19 12:50 98.3 55 16 118/69 (85) 99 Room Air I&O- Last 24 Hours up to 6 AM 08/10/19 06:00 Intake Total 0 ml Output Total 1000 ml Balance -1000 ml Laboratory Data Labs 24H Laboratory Tests 2 08/10/19 05:06: Nucleated Red Blood Cells % (auto) 0.0, Anion Gap 4L, Glomerular Filtration Rate > 60.0, Calcium Level 8.6, Magnesium Level 1.8, Troponin I 0.26#H CBC/BMP Laboratory Tests 08/10/19 05:06 Discharge Medications Scheduled Paroxetine HCl (Paroxetine) 40 Mg Tablet, 40 MG PO DAILY, (Reported) Prazosin Hcl (Prazosin HCl) 2 Mg Capsule, 2 MG PO QHS, (Reported) Allergies Coded Allergies: No Known Allergies (Unverified , 08/07/19) GOLDEN LÓPEZ MD Aug 10, 2019 14:54
--- NOTE | 2019-08-10 17:08 | ECGEPIP ---
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
--- NOTE | 2019-08-11 10:34 | IPN ---
CARDIOLOGY PROGRESS NOTE: DATE: 08/10/2019 Mr. Matamoros was seen in the bedside in PCU. Still experiencing dyspnea on exertion with palpitation and lightheadedness however he is asymptomatic at rest and he states that he is still feeling the same frequency of his symptoms however on a milder scale today compared to prior days from admission. Telemetry reveals no major pattern. However he remains in first degree heart block with bradycardia into the 40's overnight while sleeping. PHYSICAL EXAMINATION: VITALS: Temperature 98.3, pulse 64, respirations 17, blood pressure 121/57, map of 78, alkaline phos 100% on room air. Per his chart he put out a net negative of 1 liter and had by mouth intake of 0 which is not accurate. His weight is down to 94.3 kg today from 95.8 kg yesterday. He is resting comfortably in bed. No acute distress. Alert and oriented times three fully conversant. Neck is supple without any elevated jugular venous pulse. Heart is regular rate and rhythm without any murmur, clicks, or gallop. Lungs are clear throughout with equal chest rise and without any accessory muscle use. Extremities are nonedematous without any tenderness. LABS: WBC 8, hemoglobin 14.4, platelets 298, sodium and potassium 139 and 4.2, BUN and creatine 16 and 1.6, magnesium 1.8, troponin down to 0.26 from 0.6 yesterday. Lyme titer is pending, JOSIE pending. ASSESSMENT AND PLAN: Mr. Matamoros is a unique 24-year-old male with several syncope and pre-syncope events despite his very active lifestyle and heavy lifting and was found to have essentially a normal echocardiogram. Found to have a first AV block alternating with AV dislocation but no QRS complex without any severe bradycardia. Additionally he had troponin elevation 0.18 on admission up to 0.6 and down to 0.26 this morning. The cause is unclear at this point. The patient is otherwise asymptomatic without any chest pain and he is otherwise hemodynamically stable. He underwent a loop recorder placement this morning with Dr. Juarez and our differential still remains possible Lyme versus a rheumatologic cause. This is possible HIV versus transient viral myocarditis. Some labs are still pending as of this point. From our perspective since he now has the loop recorder in place he can be discharged once medially stable to followup outpatient with cardiology and he should avoid any further exercise and lifting until he is reassessed in the office.
[2019-08-11 15:42] LABS: Lyme Disease IgG Ab 18 kDa Ban Absent (.); Lyme Disease IgG Ab 23 kDa Ban Absent (.); Lyme Disease IgG Ab 28 kDa Ban Absent (.); Lyme Disease IgG Ab 30 kDa Ban Absent (.); Lyme Disease IgG Ab 39 kDa Ban Absent (.); Lyme Disease IgG Ab 41 kDa Ban Present (.); Lyme Disease IgG Ab 45 kDa Ban Absent (.); Lyme Disease IgG Ab 58 kDa Ban Absent (.); Lyme Disease IgG Ab 66 kDa Ban Absent (.); Lyme Disease IgG Ab 93 kDa Ban Absent (.); Lyme Disease IgG West Blot Int Negative (.); Lyme Disease IgG/IgM Antibodie 2.14 ISR (0.00-0.90); Lyme Disease IgM Ab 23 kDa Ban Present (.); Lyme Disease IgM Ab 39 kDa Ban Present (.); Lyme Disease IgM Ab 41 kDa Ban Present (.); Lyme Disease IgM Ab Quantitati 6.58 index (0.00-0.79); Lyme Disease IgM West Blot Int Positive (.)
[2019-08-12 00:06] LABS: ANTINUCLEAR ANTIBODIES DIRECT Negative (Negative)
== END 2019-08-10 17:05 | disposition home or self-care (01) | DRG 261 ==
LOC: M ED 08:17 → M ED INP 11:54 → M MSPAV 13:55 → M PCU 17:21 → OBSVTOIN 08-10 08:39
PROVIDERS: ADMIT Internal Medicine; ATTEND Internal Medicine
PROC: 0JH602Z Insertion of Monitoring Device into Chest Subcutaneous Tissue and Fascia, Open Approach (ICD-10-PCS; principal; 2019-08-10 10:00)
DX: I44.0 Atrioventricular block, first degree (principal); N17.9 Acute kidney failure, unspecified; M62.82 Rhabdomyolysis; R55 Syncope and collapse; R00.2 Palpitations; F43.10 Post-traumatic stress disorder, unspecified; F32.9 Major depressive disorder, single episode, unspecified; E86.0 Dehydration; Z79.899 Other long term (current) drug therapy

== ENCOUNTER 2019-08-18 07:39 | Emergency (ER) | payer OTHER ==
[~2019-08-18] VITALS: Ht 175.3 cm; Wt 93.5 kg
[~2019-08-18 07:39] MED LIST: PARO40TA3 PO; PRAZ1CAP PO; PRAZ2CAP PO
[2019-08-18 07:40] VITALS: BP 119/59
[2019-08-18] MEDS ORDERED: BUPR150T3 PO (07:45)
[2019-08-18] MEDS ORDERED: DOXY100C (07:45)
== END 2019-08-18 08:19 | disposition home or self-care (01) ==
LOC: M ED 07:39
DX: Z48.02 Encounter for removal of sutures (principal); Z79.899 Other long term (current) drug therapy

== ENCOUNTER 2021-02-24 06:32 | Emergency (ER) | payer OTHER ==
[~2021-02-24] VITALS: Ht 175.3 cm; Wt 90.8 kg
[~2021-02-24 06:32] MED LIST changes: +BUPR150T12 PO; +DOXY100C
[2021-02-24 07:45] VITALS: BP 148/78
== END 2021-02-24 07:45 | disposition home or self-care (01) ==
LOC: M ED 06:32
DX: R05 Cough (principal); B34.8 Other viral infections of unspecified site; F33.9 Major depressive disorder, recurrent, unspecified; F43.10 Post-traumatic stress disorder, unspecified; Z79.899 Other long term (current) drug therapy; Z87.891 Personal history of nicotine dependence

== ENCOUNTER 2021-08-04 23:56 | Emergency (ER) | payer OTHER ==
[~2021-08-04] VITALS: Ht 175.3 cm; Wt 87.7 kg
[~2021-08-04 23:56] MED LIST changes: -DOXY100C; +DOXY100C3
[2021-08-05] MEDS ORDERED: MELA3TAB21 PO (00:07)
[2021-08-05 01:18] LABS: BASO # 0.1 10^3/uL (0.0-0.2); BASO % 1.3 % (0.0-1.0); EOS # 0.2 10^3/uL (0.0-0.5); EOS % 1.6 % (0.0-3.0); HEMATOCRIT 44.7 % (42.0-52.0); HEMOGLOBIN 14.8 g/dl (13.5-17.5); LYMPH # 1.5 10^3/uL (1.5-5.0); LYMPH % 16.1 % (24.0-44.0); MEAN CORPUSCULAR HEMOGLOBIN 30.1 pg (27.0-33.0); MEAN CORPUSCULAR HGB CONC 33.1 g/dl (32.0-36.5); MONO # 1.1 10^3/uL (0.0-0.8); MONO % 11.4 % (2.0-8.0); NEUTROPHILS # 6.6 10^3/uL (1.5-8.5); NEUTROPHILS % 69.4 % (36.0-66.0); PLATELET COUNT, AUTOMATED 195 10^3/uL (150-450); RED BLOOD COUNT 4.91 10^6/uL (4.30-6.10); WHITE BLOOD COUNT 9.5 10^3/uL (4.0-10.0)
[2021-08-05 01:44] LABS: CK-MB VALUE MASS 7.9 NG/ML (<3.6); MB/CK RELATIVE INDEX 0.3 (< OR =4)
[2021-08-05] MEDS: ASPIRIN 81 MG CHEW TABLET PO ONE ×2 (01:50→02:19)
[2021-08-05] MEDS ORDERED: NS 1,000 ML IV ONE ×3 (02:00→02:45)
[2021-08-05 02:37] LABS: AMPHETAMINES LEVEL URINE NEGATIVE (NEGATIVE); BARBITURATES URINE NEGATIVE (NEGATIVE); BENZODIAZEPINES URINE NEGATIVE (NEGATIVE); CANNABINOIDS URINE NEGATIVE (NEGATIVE); COCAINE METABOLITE URINE NEGATIVE (NEGATIVE); METHADONE URINE NEGATIVE (NEGATIVE); OPIATES URINE NEGATIVE (NEGATIVE); PHENCYCLIDINE URINE NEGATIVE (NEGATIVE)
[2021-08-05 04:23] LABS: MB/CK RELATIVE INDEX 0.27 (< OR =4)
[2021-08-05 04:45] VITALS: BP 118/61
== END 2021-08-05 05:00 | disposition home or self-care (01) ==
LOC: M ED 23:56
DX: F80.89 Other developmental disorders of speech and language (principal); M62.82 Rhabdomyolysis; Z79.899 Other long term (current) drug therapy

== ENCOUNTER 2022-04-03 06:13 | Emergency (ER) | payer OTHER ==
[~2022-04-03] VITALS: Ht 175.3 cm; Wt 85.5 kg
[~2022-04-03 06:13] MED LIST changes: +MELA3TAB21 PO
[2022-04-03 10:57] VITALS: BP 127/72
== END 2022-04-03 10:58 | disposition home or self-care (01) ==
LOC: M ED 06:13
DX: S60.141A Contusion of right ring finger with damage to nail, initial encounter (principal); S67.194A Crushing injury of right ring finger, initial encounter; W22.8XXA Striking against or struck by other objects, initial encounter; Y92.009 Unspecified place in unspecified non-institutional (private) residence as the place of occurrence of the external cause; A69.20 Lyme disease, unspecified